=== PATIENT | female | born 1950 ===

== ENCOUNTER → 2024-03-14 08:20 | Outpatient (CLI) | payer OTHER ==
[2024-03-14 08:55] VITALS: BP 160/88
[2024-03-14 09:33] LABS: URINE APPEARANCE Clear; URINE BILIRRUBIN Negative (NEGATIVE); URINE BLOOD Negative; URINE COLOR Yellow; URINE GLUCOSE Negative (NEGATIVE); URINE KETONE Negative (NEGATIVE); URINE LEUKOCYTE Small; URINE NITRATE Negative; URINE PROTEIN Negative (NEGATIVE); URINE UROBILINOGEN 0.2 E.U./dl
[2024-03-14 09:44] LABS: URINE BACTERIA 30.5 uL (0.0-1933); URINE EPITHELIAL CELLS 2.3 uL (0.0-38.8); URINE RBC 3.2 uL (0.0-20.8); URINE WBC 34.3 uL (0.0-23.2)
[2024-03-14 09:47] LABS: HEMATOCRIT 37.6 % (36.0-45.00); HEMOGLOBIN 12.5 g/dL (12.0-15.00); MEAN CELL VOLUME 78.9 fL (80.00-100.00); MEAN CORPUSCULAR HEMOGLOBIN 26.3 pg (27.00-32.0); MEAN CORPUSCULAR HGB CONC 33.3 g/dl (32.0-36.0); PLATELET COUNT 273 K/uL (150-450); RED BLOOD COUNT 4.76 M/uL (4.00-6.00); RED CELL DISTRIBUTION WIDTH 17.2 % (11.5-14.5)
[2024-03-14 10:02] LABS: PARTIAL THROMBOPLASTIN TIME 27.9 SECONDS (22.0-34.0); PROTHROMBIN TIME 10.9 SECONDS (9.0-11.5)
[2024-03-14 10:32] LABS: ALBUMIN 3.7 gm/dL (3.4-5.0); BILIRUBIN TOTAL 0.37 mg/dL (0.3-1.2); CALCIUM 9.3 mg/dL (8.5-10.1); CREATININE SERUM 0.46 mg/dL (0.55-1.02); GFR 133.53; GLOBULINA 3.6 G/DL (2.4-3.5); POTASSIUM 4.95 mEq/L (3.5-5.1); TOTAL PROTEIN 7.3 gm/dL (6.4-8.2)
== END | disposition home or self-care (01) ==
LOC: LAB 08:20
PROVIDERS: ATTEND Colon & Rectal Surgery
DX: K59.00 Constipation, unspecified (principal); N39.0 Urinary tract infection, site not specified; K62.5 Hemorrhage of anus and rectum; D59.8 Other acquired hemolytic anemias; Z11.59 Encounter for screening for other viral diseases; Z20.828 Contact with and (suspected) exposure to other viral communicable diseases; D68.9 Coagulation defect, unspecified; R05.1 Acute cough; R50.9 Fever, unspecified; Z01.812 Encounter for preprocedural laboratory examination; R32 Unspecified urinary incontinence; R15.9 Full incontinence of feces

== ENCOUNTER 2024-03-28 08:15 | Day surgery (SDC) | payer OTHER ==
[2024-03-25 10:45] VITALS: BP 170/84
[~2024-03-28] VITALS: Ht 157.5 cm; Wt 68.0 kg
[~2024-03-28 08:15] MED LIST: COZAAR25 MG PO; SYNTHROID50 MCG PO
[2024-03-28] MEDS ORDERED: BUPIVACAINE HCL/MPF 0.5% 30ML VIAL ONE (16:42)
[2024-03-28] MEDS ORDERED: LIDOCAINE HCL 1%/EPINEPHRINE 20ML VIAL IJ ONE (16:42)
== END 2024-03-28 20:30 | disposition home or self-care (01) ==
LOC: CIR.AMB 08:15
PROVIDERS: ATTEND Colon & Rectal Surgery
DX: R15.9 Full incontinence of feces (principal)
CPT/HCPCS: 64581; 95971; C1778

== ENCOUNTER 2024-04-11 06:20 | Day surgery (SDC) | payer OTHER ==
[2024-03-25 11:29] VITALS: BP 170/84
[~2024-04-11] VITALS: Ht 157.5 cm; Wt 68.0 kg
[2024-04-11] MEDS ORDERED: CEFAZOLIN SODIUM 1,000 MG VIAL IV SCH (09:15)
== END 2024-04-11 12:05 | disposition home or self-care (01) ==
LOC: CIR.AMB 06:20
PROVIDERS: ATTEND Colon & Rectal Surgery
DX: R15.9 Full incontinence of feces (principal); R32 Unspecified urinary incontinence; I10 Essential (primary) hypertension; E03.8 Other specified hypothyroidism; M19.90 Unspecified osteoarthritis, unspecified site
CPT/HCPCS: 64590; 95971; C1767